=== PATIENT | male | born 1960 | race Caucasian/White ===

== ENCOUNTER 2020-03-22 11:58 | Inpatient (IN) | payer BC, SELFPAY ==
[~2020-03-22] VITALS: Ht 185.4 cm; Wt 106.8 kg
--- NOTE | 2020-03-22 13:11 | NUR ---
AWAITING BED AVAILABILITY IN LOBBY. NO DISTRESS
--- NOTE | 2020-03-22 13:50 | NUR ---
DR WILHELM AT BEDSIDE WITH MSE
--- NOTE | 2020-03-22 14:46 | NUR ---
X RAY AT BEDSIDE
--- NOTE | 2020-03-22 14:48 | NUR ---
PT ARRIVED TO THE ER C/O ABNORMAL LABS, PT STATES LAST WEEK HE WENT TO VISIT PCP FOR FACIAL PAIN, DIAGNOSED WITH TRIGEMINAL NEURALGIA AND WAS SUPPOSE TO GET AN MRI TODAY, HE STATES THAT HE STARTED TAKING A MEDICATION TEGRETOL, LAST WEEK, THEN ON FRIDAY NIGHT TO FRIDAY MORNING OF 102 F ORAL, CALLED PCP RECOMMNENED TO DO COVID, PT STATES FEVER WENT DOWN AND DECIDEDN NOT TO TAKE THE TEST, PT STATES HE NOTICED RASH ON SKIN AND CALLED PCP AND STATED THAT HE PROBABLY IS HAVING AN ALLERGIC REACTION, PCP STATED HE DID NOT THINK SO AND RECOMMENDED THAT HE GET THE COVID TEST, PT WENT TO COVID TESTING DRIVE THROUGH [place] IN [place], THE NURSE NOTICED THAT PT HAD PETECHIAE ON UPPER AND LOWER BILATERAL EXTREMITIES, NURSE GAVE AN ORDER FOR STAT TEST BLOOD, PT WENT THIS MORNING AND GOT LAB DRAWN, HE WAS CALLED AND THEY STATED PLATELETS WERE 10 REFERRED TO COME TO ER, PT PLACED IN BED T1, AAOX4, NO ACUTE DISTRESS NOTED, DENIES PAIN, NO COUGH OR RESPIRATORY SYMPTOMS NOTED, IV ACCESS OBTAINED, LABS DRAWN, GOWNE, PLACED ON CM AND PULSE OX, SAFETY AND ISOLATION PRECAUTIONS IN PLACE, WILL CONTINUE TO MONITOR.
[2020-03-22 15:15] LABS: BASOPHIL % 0.4 % (0-2); RED CELL DISTRIBUTION WIDTH 13.3 % (11.5-14.5)
[2020-03-22 15:18] LABS: CALCIUM 8.2 mg/dL (8.5-10.1); CARBON DIOXIDE 25.6 mmol/L (21-32); CHLORIDE SERUM 97 mmol/L (98-107); GFR1 > 60 mL/min; GLUCOSE SERUM 102 mg/dL (74-106); POTASSIUM SERUM 3.3 mmol/L (3.5-5.1); SODIUM SERUM 134 mmol/L (136-145)
[2020-03-22 15:30] LABS: UA SPECIFIC GRAVITY 1.025 (1.005-1.035); microscopic required? YES; urine erythrocyte NEGATIVE (NEGATIVE)
[2020-03-22 15:32] LABS: ALBUMIN 3.6 g/dL (3.4-5.0); ALKALINE PHOSPHATASE 68 U/L (46-116); ALT/SGPT 57 U/L (16-63); AST/SGOT 29 U/L (15-37); BILIRUBIN TOTAL 0.6 mg/dL (0.20-1.00); C REACTIVE PROTEIN 9.6 mg/dL (<=0.9); LACTIC DEHYDROGENASE (LDH) 329 U/L (100-190)
[2020-03-22 15:43] LABS: PLATELET COUNT 6 x10^3mcL (130-400)
--- NOTE | 2020-03-22 15:47 | NUR ---
SPOKE WITH MARIE , UPDATED WITH POC, PER PT OK TO GIVE INFORMATION TO , TO BRING PHONE PAINT TECHNICIAN FOR PT
--- NOTE | 2020-03-22 15:51 | NUR ---
SPOKE WITH ADMITTING DR RADHA VERDUZCO, VERBAL ORDERS RECEIVED AND READ BACK, DX: THROMBOCYTOPENIA, TELE, PJ MADE AWARE
--- NOTE | 2020-03-22 15:55 | NUR ---
IRVIN GUARDADO NUMBER [phone]
--- NOTE | 2020-03-22 16:31 | NUR ---
RECEIVED PT FROM ED VIA ARIELERFERNANDA, CAME IN DUE TO LOW PLATELET COUNT. PT IS AAOX4. DENIES HEADACHE/DIZZINESS. ABLE TO FOLLOW COMMANDS. PT STATED THAT HE STARTED ON TEGRETOL 1 WEEK AGO AND NOTICED REDDENED SPOTS ABOUT 4 DAYS AGO. PT NO SOB NOTED, LUNG SOUNDS CTA, O2 SAT=97%, RA. DENIES COUGH. DENIES CHEST PAIN/PRESSURE, SINUS TACHYCARDIA ON THE MONITOR, HR AT 108. NO EDEMA. DENIES NUMBNESS/SWELLING. 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 DENIES ABDOMINAL PAIN/NAUSEA/VOMITING. LAST BM WAS 1 WEEK AGO. ABDOMEN IS SOFT AND ROUND. ABLE TO PASS GAS. VOIDS. IV SITE PATENT AND INTACT. RECEIVED PT FROM ED WEARING A MASK AND WAS PLACED ON DROPLET/CONTACT ISOLATION. ENDORSED TO PRIMARY NURSE SISSY FOR CONTINUITY OF CARE
--- NOTE | 2020-03-22 16:41 | NUR ---
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
[2020-03-22 16:55] VITALS: BP 148/69
[2020-03-22 17:03] VITALS: Ht 185.4 cm; Wt 106.8 kg
--- NOTE | 2020-03-22 18:27 | NUR ---
NO ACUTE CHANGES AT THIS TIME, NO ACUTE RESP DISTRESS OR SOB NOTED. REMAINS ON ISOLATION/ TOLERATED 100% OF DINNER/ DENIES ANY NV AT THIS TIME. WILL ENDORSE TO INCOMING RN.
--- NOTE | 2020-03-22 19:20 | NUR ---
RECEIVED PATIENT FROM PREVIOUS SHIFT NURSE. PATIENT IN NO ACUTE DISTRESS. AWAKE, ALERT AND ORIENTED X4. EVEN AND UNLABORED BREATHING, ROOM AIR. TELE #5, NSR. NO SOB. DENIES ANY PAIN OR CHEST PAIN/PRESSURE. PATIENT HAS PETECHIAE, DR AWARE. IV WNL. NO ERYTHEMA/EDEMA AT IV SITE. GOOD BLOOD RETURN AND FLUSING WELL. DRESSING CDI. BED IN LOWEST POSITION. CALL LIGHT WITHIN REACH.
[2020-03-22 20:30] VITALS: BP 121/83
--- NOTE | 2020-03-23 01:21 | NUR ---
DR AUSTIN INFORMED OF PATIENTS TEMP OF 100.4, DR AUSTIN SAID OK TO TRANSFUSE PLATELETS. HE SAID "GIVE TYLENOL AND THEN TRANSFUSE".
--- NOTE | 2020-03-23 02:10 | NUR ---
INITIATED PATIENTS PLATELETS. PATIENTS PRE TEMP WAS 100.4. DR AUSTIN INFORMED AND SAID TO GO AHEAD WITH TRANSFUSION AND GIVE TYLENOL BEFORE HAND. TYLENOL WAS GIVEN BEFORE BEGINNING THE TRANSFUSION. PATIENT TOLERATING TRANFUSION WELL. DENIES ANY FEVER, CHILLS, SOB, ELEVATED TEMP, DYSNPEA, OR ANY ADVERSE REACTION TO THE INFUSION. 15 MIN AFTER SLOW INFUSION OF 60 MLS/HR WAS 98.8. INCREASED THE RATE OF INFUSION TO 250 MLS/HR. PATIENT INFORMED TO USE CALL LIGHT WITH ANY ADVERSE REACTION. PATIENT VERBALIZES UNDERSTANDING.
--- NOTE | 2020-03-23 03:05 | NUR ---
PATIENT TOLERATED INFUSION WELL. NO S/S OF ADVERSE REACTION, NO ADVERSE REACTION REPORTED BY PATIENT. EDUCATED PATIENT ON REPORTING ANY ADVERSE REACTIONS SYMPTOMS. VERBALIZES UNDERSTANDING. BED IN LOWEST POSITION. CALL LIGHT WITHIN REACH.
[2020-03-23 05:38] VITALS: BP 134/86
--- NOTE | 2020-03-23 06:27 | NUR ---
REMAINS IN NO ACUTE DISTRESS. EVEN AND UNLABORED BREATHING, ROOM AIR. TELE #[address], NSR. PATIENT SLEEPING COMFORTABLY. BED IN LOWEST POSITION. CALL LIGHT WITHIN REACH. WILL ENDORSE CARE TO ONCOMING SHIFT NURSE.
[2020-03-23 07:12] LABS: BASOPHIL % 0.2 % (0-2); RED CELL DISTRIBUTION WIDTH 13.3 % (11.5-14.5)
[2020-03-23 07:23] LABS: CALCIUM 8.1 mg/dL (8.5-10.1); CARBON DIOXIDE 26.2 mmol/L (21-32); CHLORIDE SERUM 99 mmol/L (98-107); CREATININE SERUM 0.9 mg/dL (0.7-1.3); GFR1 > 60 mL/min; GLUCOSE SERUM 112 mg/dL (74-106); POTASSIUM SERUM 3.1 mmol/L (3.5-5.1); SODIUM SERUM 138 mmol/L (136-145)
[2020-03-23 07:27] LABS: PLATELET COUNT 7 x10^3mcL (130-400)
--- NOTE | 2020-03-23 07:30 | NUR ---
RECEIVED PATIENT IN BED IN ISOLATION FOR R/O COVID. HL RT HAND PATENT. RESP EVEN AND UNLABORED, LUNGS CLEAR ON ROOM AIR. SCATTERED PETECHIAE NOTED, BUT PER PATIENT IT IS MUCH LESS TODAY AND NOT RED. AMBULATES AD KARLY TO THE BATHROOM. PATIENT C/O HAVING MAINLY FACIAL PAIN. OFFERED PATIENT PAIN MEDS, BUT PATIENT REFUSED. REQUESTING GABEPENTIN PER OSWALDO HE SPOKE WITH A DR GILBERTO LEONE AND HE UNDERSTOOD IT WOULD BE ORDERED, CALL PLACED TO DR AUSTIN AWAITING RETURN CALL. WILL CONTINUE TO MONITOR PATIENT.
[2020-03-23 08:18] VITALS: BP 135/92
--- NOTE | 2020-03-23 11:33 | NUR ---
DR AUSTIN CALLED AND NEW ORDERS RECEIVED FOR NEURONTIN AT THIS TIME.
[2020-03-23 12:08] VITALS: BP 150/97
--- NOTE | 2020-03-23 13:30 | NUR ---
DR AUSTIN WAS INTO SEE PATIENT. NO CHANGE IN CONDITIION NOTED. WILL CONTINUE TO MONITOR.
[2020-03-23 16:29] VITALS: BP 141/79
--- NOTE | 2020-03-23 18:15 | NUR ---
PATIENT REMAINS IN BED. NO CHANGE IN CONDITION NOTED. SCATTERED PETECHIAE REMAINS UNCHANGED SINCE THIS AM. PER PATIENT HE ONLY HAS SLIGHT FACIAL DISCOMFORT WHEN HE TALKS OR EATS. NO ACUTE DISTRESS NOTED. CONTINUES TO DECLINE ANY PAIN MED THIS SHIFT.
--- NOTE | 2020-03-23 19:20 | NUR ---
RECEIVED PATIENT FROM PREVIOUS SHIFT NURSE. PATIENT IN NO ACUTE DISTRESS. AWAKE ALERT AND ORIENTED X4. EVEN AND UNLABORED BREATHING, ROOM AIR. TELE #[address] SCATTERED PETECHIAE. RH IV, WNL. DENIES ANY PAIN, CHEST PAIN OR SOB AT THIS MOMENT. BED IN LOWEST POSITION. CALL LIGHT WITHIN REACH. ISOLATION PRECUATIONS IN PLACE.
[2020-03-23 19:59] VITALS: BP 124/86
--- NOTE | 2020-03-23 22:30 | NUR ---
REMOVED IV TO RIGHT HAND. IV HAD NO BLOOD RETURN AND HAD RESISTANCE UPON FLUSHING. TIP INTACT. STARTED A NEW IV TO THE LEFT HAND. PATIENT TOLERATED WELL. GOOD BLOOD RETURN, AND FLUSHIGN WELL.
--- NOTE | 2020-03-24 01:15 | NUR ---
BEGAN TRANSFUSION OF 1 UNIT PLATELETS AT 0000H. PATIENTS PRE VITALS ARE THE FOLLOWING; TEMP 98.4, PULSE 84, B/P 1396/90, RESP 18, O2 96%. VITALS AFTER 15 MINUTES REMAINED STABLE. PATIENT DENIES ANY ADVERSE REACTION OR SYMPTOMS. INSTRUCTED PATIENT TO REPORT ANY ADVERSE REACTIONS AT ANY MOMENT. PATIENT VERBALIZES UNDERSTANDING. INFUSION NOW COMPLETE, PATIENT TOLERATED TRANSFUSION. CONTINUES TO DENY ANY ADVERSE REACTION. INSTRUCTED PATIENT TO REPORT ANY S/S OF ADVERSE REACTION EVEN THOUGHT ITS BEEN COMPLETE ALREADY. BED IN LOWEST POSITION. CALL LIGHT WITHIN REACH.
[2020-03-24 07:02] VITALS: BP 145/100
--- NOTE | 2020-03-24 07:20 | NUR ---
RECEIVED PT IN BED AWAKE, ALERT, VERBALLY RESPONSIVE. ON DROPLET PRECAUTION FOR R/O COVID. DENIES PAIN OR DISCOMFORT AT THIS TIME. IN NO ACUTE RESPIRATORY DISTRESS. ON RA, DENIES SOB, COUGH, OR CHILLS. ON TELE 5. IV SITE TO SALINE LOCK. BED IN LOWEST POSITION. NO CONCERN AT THIS TIME. CALL LIGHT WITHIN REACH. WILL CONTINUE TO MONITOR
[2020-03-24 07:58] VITALS: BP 145/98
[2020-03-24 11:09] LABS: CALCIUM 8.8 mg/dL (8.5-10.1); CHLORIDE SERUM 102 mmol/L (98-107); GFR1 > 60 mL/min; GLUCOSE SERUM 138 mg/dL (74-106); POTASSIUM SERUM 3.6 mmol/L (3.5-5.1); SODIUM SERUM 140 mmol/L (136-145)
[2020-03-24 12:28] VITALS: BP 147/92
[2020-03-24 12:37] LABS: BASOPHIL % 0.3 % (0-2)
[2020-03-24 13:05] LABS: RED CELL DISTRIBUTION WIDTH 13.1 % (11.5-14.5)
[2020-03-24 13:14] LABS: PLATELET COUNT 39 x10^3mcL (130-400)
[2020-03-24 13:36] VITALS: BP 145/98
--- NOTE | 2020-03-24 16:00 | NUR ---
PATIENT DISCHARGE TO HOME. DISCHARGE TEACHING GIVEN TO PATIENT INCLUDING FOLLOW UP WITH PCP AND SCHEDULED APPTS. NO DISCHARGE MEDICATIONS ON FILE, RADHA RAUSCH MADE AWARE. PER , ADDITIONAL ORDERS WERE FAXED TO THE PATIENT'S PHARMACY. DISCHARGE FORMS AND INVENTORY SIGNED BY PATIENT. ALL QUESTIONS AND CONCERNS ADDRESSED, NO FURTHER QUESTION AT THIS TIME. D/C IV SITE FROM LEFT HAND, APPLIED PRESSURE, NO NOTED BLEEDING. D/C OFF TELE 5. PATIENT WAS ASSISTED TO THE LOBBY BY STAFF AND PICKED UP BY VIA PRIVATE CAR. LEFT IN GOOD CONDITION. DENIES SOB. NO PAIN OR DISCOMFORT.
== END 2020-03-24 16:00 | disposition home or self-care (01) | DRG 813 ==
LOC: ED 11:58 → DU 15:51
PROVIDERS: Emergency Medicine; ADMIT Internal Medicine; ATTEND Internal Medicine
PROC: 30233R1 Transfusion of Nonautologous Platelets into Peripheral Vein, Percutaneous Approach (ICD-10-PCS; principal; 2020-03-22)
DX: D69.6 Thrombocytopenia, unspecified (principal); G50.0 Trigeminal neuralgia; J20.8 Acute bronchitis due to other specified organisms; Z03.818 Encounter for observation for suspected exposure to other biological agents ruled out
CPT/HCPCS: 83880; 85378; 87804; G0378; J1100; J7030; J7050; P9035; Q0092; U0003-CS